=== PATIENT | male | born 1980 | race Hispanic/Latino ===

== ENCOUNTER 2019-04-25 15:21 | Emergency (ER) | payer SELFPAY ==
[2019-04-25] MEDS ORDERED: Ketorolac Tromethamine 60 MG/2 ML VIAL ONE (16:38)
--- NOTE | 2019-04-25 17:56 | ULT ---
LEFT LOWER EXTREMITY VENOUS DUPLEX ULTRASOUND INCLUDING COLOR AND SPECTRAL DOPPLER IMAGING: HISTORY: Left leg pain. Pain primarily in the lateral calf. TECHNIQUE: Exam performed from groin to ankle, including visualized greater saphenous vein, common femoral vein, superficial femoral vein, profunda femoral vein, popliteal vein, trifurcation, and posterior tibial vein regions. FINDINGS: There is phasic flow with normal compressibility and normal augmentation. No intraluminal thrombus. IMPRESSION: No evidence of deep venous thrombosis. POS: [facility]
== END 2019-04-25 17:22 | disposition short-term general hospital (02) ==
LOC: ERS 15:21
DX: M79.662 Pain in left lower leg (principal); F17.210 Nicotine dependence, cigarettes, uncomplicated
CPT/HCPCS: 96372; J1885